=== PATIENT | male | born 1970 | race Caucasian/White ===

== ENCOUNTER 2018-02-03 08:00 | Emergency (ER) | payer BC ==
[2018-02-03 08:15] VITALS: BP 147/86
--- NOTE | 2018-02-03 08:30 | UC ---
Lower Extremity/Ankle HPI - HPI Summary HPI Summary: pain right great toe x 1 day very painful, swollen, red hx of gout also c/o dizziness x 2 days , worse with head movements no fever, no chills, no sinus pain , no cold sx, no chest pain - History of Current Complaint Chief Complaint: UCGeneralIllness Stated Complaint: RIGHT FOOT COMP,DIZZINESS Time Seen by Provider: 02/03/18 08:16 Hx Obtained From: Patient Onset/Duration: Gradual Onset, Lasting Days - 2, Still Present Severity Initially: Moderate Severity Currently: Severe Pain Intensity: 6 Aggravating Factor(s): Standing, Ambulation Able to Bear Weight: Yes - Allergies/Home Medications Allergies/Adverse Reactions: Allergies Allergy/AdvReac Type Severity Reaction Status Date / Time No Known Allergies Allergy Verified 02/03/18 08:12 Home Medications: Home Medications Losartan TAB* [Cozaar TAB*] 100 mg PO DAILY 02/03/18 [History Confirmed 02/03/18 ] PMH/Surg Hx/FS Hx/Imm Hx Cardiovascular History: Hypertension Other History Of: Negative For: HIV, Hepatitis B, Hepatitis C - Surgical History Surgical History: Yes Surgery Procedure, Year, and Place: Right lower leg vascular surgery RE-ROUTED NO IMPLANT"valve in vein" 10/31/12. Deviated Septum Repair, 1984 - Family History Known Family History: Positive: None, Cardiac Disease Negative: Diabetes - Social History Alcohol Use: Occasionally Substance Use Type: None Smoking Status (MU): Former Smoker Type: Cigarettes Amount Used/How Often: ~1 1/2 PPD Length of Time of Smoking/Using Tobacco: 26 Years Have You Smoked in the Last Year: No When Did the Patient Quit Smoking/Using Tobacco: 2007 - Immunization History Most Recent Influenza Vaccination: August 2016 Review of Systems Constitutional: Negative Skin: Negative Eyes: Negative ENT: Negative Respiratory: Negative Neurological: Other Psychological: Negative Is Patient Immunocompromised?: No All Other Systems Reviewed And Are Negative: Yes Physical Exam Triage Information Reviewed: Yes Appearance: Well-Appearing, Well-Nourished, Pain Distress Vital Signs: Initial Vital Signs Temp 98 F 02/03/18 08:09 Pulse 63 02/03/18 08:09 Resp 18 02/03/18 08:09 BP 147/86 02/03/18 08:09 Pulse Ox 99 02/03/18 08:09 Vital Signs Reviewed: Yes Eye Exam: Normal Eyes: Positive: Conjunctiva Clear ENT: Positive: Normal ENT inspection, Hearing grossly normal, Pharynx normal Neck exam: Normal Neck: Positive: Supple, Nontender, No Lymphadenopathy Respiratory: Positive: Chest non-tender, Lungs clear, Normal breath sounds Cardiovascular: Positive: RRR, No Murmur, Pulses Normal Abdominal Exam: Normal Abdomen Description: Positive: Nontender, No Organomegaly, Soft Bowel Sounds: Positive: Present Musculoskeletal Exam: Normal Musculoskeletal: Positive: Strength Intact, ROM Intact, No Edema Neurological: Positive: Alert Skin Exam: Normal UC Physical Exam Vital Signs On Initial Exam: Initial Vitals Temp Pulse Resp BP Pulse Ox 98 F 63 18 147/86 99 02/03/18 08:09 02/03/18 08:09 02/03/18 08:09 02/03/18 08:09 02/03/18 08:09 - Neurological Exam Neurological: Normal, Sensory/Motor Intact, Alert, Oriented to Person Place, Time, CN Intact II-III, Normal Gait, Speech Normal Lower Extremity Course/Dx - Differential Dx/Diagnosis Provider Diagnoses: vertigo. gout Discharge - Discharge Plan Condition: Stable Disposition: HOME Prescriptions: Indomethacin CAP* [Indocin CAP*] 50 mg PO TID #15 cap Meclizine TAB* [Antivert 12.5 TAB*] 25 mg PO TID PRN #21 tab PRN Reason: Dizziness Patient Education Materials: Gout (ED), Vertigo (ED) Referrals: No Primary Care Phys,NOPCP [Primary Care Provider] - 5 Days
== END 2018-02-03 08:30 | disposition home or self-care (01) ==
LOC: UCCORT 08:00
DX: M10.9 Gout, unspecified (principal); R42 Dizziness and giddiness; Z87.891 Personal history of nicotine dependence
CPT/HCPCS: 99212; G0463

== ENCOUNTER 2018-08-07 09:29 | Emergency (ER) | payer BC ==
[2018-08-07 10:17] VITALS: BP 163/95
--- NOTE | 2018-08-07 10:28 | UC ---
Hand/Wrist HPI - HPI Summary HPI Summary: 47 yo male presents with left thumb pain over the last 3-4 weeks. 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 No pain with ROM. Has not taken anything for the discomfort. Denies injury, numbness, or tingling. - History Of Current Complaint Chief Complaint: UCUpperExtremity Stated Complaint: LEFT HAND COMPLAINT Time Seen by Provider: 08/07/18 10:28 Hx Obtained From: Patient Onset/Duration: Gradual Onset Severity Initially: Mild Severity Currently: Mild Pain Intensity: 2 Pain Scale Used: 0-10 Numeric - Allergies/Home Medications Allergies/Adverse Reactions: Allergies Allergy/AdvReac Type Severity Reaction Status Date / Time No Known Allergies Allergy Verified 08/07/18 10:12 Home Medications: Home Medications Indomethacin CAP* [Indocin CAP*] 50 mg PO TID PRN 08/07/18 [History Confirmed ] PMH/Surg Hx/FS Hx/Imm Hx Endocrine History: Dyslipidemia Cardiovascular History: Hypertension Other History Of: Negative For: HIV, Hepatitis B, Hepatitis C - Surgical History Surgical History: Yes Surgery Procedure, Year, and Place: Right lower leg vascular surgery RE-ROUTED NO IMPLANT"valve in vein" 10/31/12. Deviated Septum Repair, 1984 - Family History Known Family History: Positive: None, Cardiac Disease Negative: Diabetes - Social History Occupation: Employed Full-time Lives: With Family Alcohol Use: Occasionally Substance Use Type: None Smoking Status (MU): Former Smoker Type: Cigarettes Amount Used/How Often: ~1 1/2 PPD Length of Time of Smoking/Using Tobacco: 26 Years Have You Smoked in the Last Year: No When Did the Patient Quit Smoking/Using Tobacco: 2007 - Immunization History Most Recent Influenza Vaccination: August 2016 Review of Systems Constitutional: Negative Skin: Negative Respiratory: Negative Cardiovascular: Negative Neurovascular: Negative Musculoskeletal: Other: - Left thumb pain Neurological: Negative Psychological: Negative All Other Systems Reviewed And Are Negative: Yes Physical Exam - Summary Physical Exam Summary: GENERAL: NAD. WDWN. No pain distress. SKIN: No rashes, sores, lesions, or open wounds. CHEST: No accessory muscle use. Breathing comfortably and in no distress. CV: Pulses intact radial and ulnar. Cap refill <2seconds MSK: LEFT THUMB: Mild TTP at CMC joint. Pain increased with gripping. FROM without pain. 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 No edema or obvious bony deformities. No snuffbox tenderness. NEURO: Alert. Sensations intact hand and all fingers. PSYCH: Age appropriate behavior. Triage Information Reviewed: Yes Vital Signs: Initial Vital Signs Temp 98 F 08/07/18 10:13 Pulse 61 08/07/18 10:13 Resp 18 08/07/18 10:13 BP 163/95 08/07/18 10:13 Pulse Ox 99 08/07/18 10:13 Vital Signs Reviewed: Yes Hand/Wrist Course/Dx - Course Course Of Treatment: Suspect tendinitis vs CMC arthritis. Will hold off on XR today as pt has had no injury. I discussed physical therapy with the pt, but he preferred to see Orthopedics. I believe a corticosteroid injection into the CMC joint would significantly improve his discomfort along with OT/PT and NSAIDs. He was provided with a thumb spica splint to use for comfort and reduction of pain. - Differential Dx/Diagnosis Provider Diagnoses: Left thumb pain Discharge - Sign-Out/Discharge Documenting (check all that apply): Patient Departure All imaging exams completed and their final reports reviewed: No Studies - Discharge Plan Condition: Stable Disposition: HOME Patient Education Materials: Skier's Thumb (ED), Osteoarthritis (DC) Referrals: No Primary Care Phys,NOPCP [Primary Care Provider] - Jossue Baum MD [Medical Doctor] - As Soon As Possible Additional Instructions: If you develop a fever, shortness of breath, chest pain, new or worsening symptoms - please call your PCP or go to the ED. Your blood pressure was high at todays visit. Please see your primary provider within 4 weeks for recheck and re-evaluation. 1) Rest and Ice your hand to relieve pain 2) Use the thumb splint for added comfort and pain relief 3) Please call Orthopedics at the number below to schedule a follow up appointment as soon as possible - Billing Disposition and Condition Condition: STABLE Disposition: Home
--- OUTSIDE RECORDS SUMMARY | 2018-08-09 04:03 | XMS REPORT ---
:1970 External Reference #:[id number] Author Organization [facility] Address [address] [place] [address] [place] [address] Phone [phone] Care Team Providers Name Role Phone Patient's Choice Primary Care Physician Unavailable Payers Type Date Identification Numbers Payment Provider Subscriber Commercial Effective: Policy Number: ROGERS Urias Rosalina Baxter 2011 [id number] Expires: 2016 PayID: [id number] [address] [address] DMITRY Fam [id number] Medigap Part B Effective: Policy Number: Jose Barrientos Ppdemetrius Perrybee 2016 [id number] Group Number: [id number] [address] [address] PayID: [id number] DMITRY Cedeño [id number] Problems Date Description Provider Status Onset: 10/04/2012 Epistaxis Brice Cleary M.D. Active Onset: 09/13/2012 Chronic rhinitis Brice Cleary M.D. Active Onset: 09/13/2012 Hypertrophy of nasal turbinates Brice Cleary M.D. 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 Cigarette Use Quit 4 Years Ago Cigars Never Smoked Cigars Pipe Never Smoked A Pipe Smokeless Tobacco Never Used Smokeless Tobacco ETOH Use Drinks 3 Alcoholic Beverages Per Day Smoking Patient is a former smoker Allergies, Adverse Reactions, Alerts Date Description Reaction Status Severity Comments 09/13/2012 NKDA active Medications Medication Date Status Form Strength Qnty SIG Indications Ordering Provider Atenolol / Active Tablets 25mg 1 po qday Sourav, 0000 MD Abelardo Losartan / Active Tablets 100mg 1 by Unknown Potassium 0000 mouth every day Ibuprofen 200 / Active Tablets 200mg 400-600mg Unknown 0000 every 6 hours as needed for pain. Tramadol HCL 01/27/ Hx Tablets 50mg 60tabs 1 tablet Zaneb 2016 - by mouth MD Natalie 08/06/ every 12 2018 hours as needed pain Diclofenac 12/20/ Hx Tablets DR 75mg 60tabs Take 1 by S83.232A Zaneb Sodium 2016 - mouth MD Natalie 08/06/ twice a 2017 day as needed for pain Veramyst 10/04/ Hx Suspension 27.5mcg/Sp 1units 2 sprays 472.0 Brice 2011 - ray in each [facility] 11/19/ Veronica willams 2016 qday Fluticasone 09/13/ Hx Suspension 50mcg/Act 1units 2 sprays 472.0 Brice Propionate 2011 - in each [facility] 10/04/ Veronica willams 2011 bid for 2 weeks and then qday Azelastine HCL 09/13/ Hx Solution 137mcg/Spr 1units 2 sprays 472.0 Brice 2011 - ay in each [facility] 10/04/ Veronica willams 2011 bid Zegerid OTC / Hx Capsules 20-1100mg 1 capsule Rahner, 0000 - in am Abdoul, 2017 Medications Administered in Office Medication Date Status Form Strength Qnty SIG Indications Ordering Provider Celestone 3 mg 08/07/ Administered Injection Jonathan M and 3mg 2017 MD Radha Triamcinolone 01/13/ Administered Injection Zaneb (Kenalog) 2016 MD Natalie Vital Signs Date Vital Result Comment 08/07/2018 Height 75 inches 6'3" Weight 250.00 lb BP Systolic Sitting 126 mmHg BP Diastolic Sitting 78 mmHg Respiratory Rate 16 /min Pain Level 2 achy, occassional stabbing pain BMI (Body Mass Index) 31.2 kg/m2 01/13/2017 Height 75 inches 6'3" Weight 255.00 lb Heart Rate 70 /min BP Systolic 152 mmHg BP Diastolic 103 mmHg Pain Level 3 BMI (Body Mass Index) 31.9 kg/m2 09/13/2012 Weight 175.00 lb Heart Rate 80 /min BP Systolic Sitting 128 mmHg BP Diastolic Sitting 86 mmHg Results Description No Information Procedures Date CPT Code Description Status 08/07/201820417 Inject/Drain Joint/Bursa Intermediate W/O US Completed 01/13/2017 Inject/Drain Joint/Bursa Major W/O US Completed 10/04/2012 70487 Endoscopic Nasal Cautery Completed Encounters Type Date Location Provider CPT E/M Dx Office Visit 01/13/2017 8:15a [facility] [place] [address] M25.562 C[facility] S83.232D S83.282D Office Visit 12/20/2016 2:30p [facility] [place] [address] M25.562 C.[facility] S83.232A S83.282A Office Visit 10/04/2012 2:15p [facility], [address] 784.7 [facility] AT [facility] 478.19 478.0 472.0 Office Visit 09/13/2012 9:45a [facility], [address] 478.19 [facility] 478.0 472.0 Plan of Care 08/07/2018 - Jonathan Garcia, MDM18.12 Unil primary osteoarth of first carpometacarp joint, l handComments:use braceFollow up:Follow up: As needed
== END 2018-08-07 10:43 | disposition home or self-care (01) ==
LOC: UCCORT 09:29
DX: M79.645 Pain in left finger(s) (principal); I10 Essential (primary) hypertension; Z87.891 Personal history of nicotine dependence
CPT/HCPCS: 99212; G0463

== ENCOUNTER 2019-12-31 16:16 | Emergency (ER) | payer BC ==
[2019-12-31 16:37] VITALS: BP 153/88
--- NOTE | 2019-12-31 16:57 | UC ---
Lower Extremity/Ankle HPI - HPI Summary HPI Summary: 49 yo male presents with LEFT foot pain. He tells me this morning he was wearing his usual sneakers and walking to his car. In the process of this he heard and felt a pop to his left foot at the base of his 5th MT with severe pain. He continued to work on this throughout today and was very painful. Nothing OTC for symptoms. Denies numbness or tingling. - History of Current Complaint Chief Complaint: UCLowerExtremity Stated Complaint: LEFT FOOT COMPLAINT Time Seen by Provider: 12/31/19 16:56 Hx Obtained From: Patient Onset/Duration: Sudden Onset Severity Initially: Severe Severity Currently: Severe Pain Intensity: 8 Pain Scale Used: 0-10 Numeric - Allergies/Home Medications Allergies/Adverse Reactions: Allergies Allergy/AdvReac Type Severity Reaction Status Date / Time No Known Allergies Allergy Verified 12/31/19 16:34 PMH/Surg Hx/FS Hx/Imm Hx Cardiovascular History: Hypertension Other History Of: Negative For: HIV, Hepatitis B, Hepatitis C - Surgical History Surgical History: Yes Surgery Procedure, Year, and Place: Right lower leg vascular surgery RE-ROUTED NO IMPLANT"valve in vein" 10/31/12. Deviated Septum Repair, 1984 - Family History Known Family History: Positive: Cardiac Disease Negative: Diabetes - Social History Occupation: Employed Full-time Lives: With Family Alcohol Use: Weekly Alcohol Amount: every other day Substance Use Type: None Smoking Status (MU): Former Smoker Type: Cigarettes Amount Used/How Often: ~1 1/2 PPD Length of Time of Smoking/Using Tobacco: 26 Years Have You Smoked in the Last Year: No When Did the Patient Quit Smoking/Using Tobacco: 2007 - Immunization History Most Recent Influenza Vaccination: August 2016 Review of Systems All Other Systems Reviewed And Are Negative: No Constitutional: Positive: Negative Skin: Positive: Negative Respiratory: Positive: Negative Cardiovascular: Positive: Negative Neurovascular: Positive: Negative Musculoskeletal: Positive: Other: - Left foot pain Neurological/Mental Status: Positive: Negative Psychological: Positive: Negative Physical Exam - Summary Physical Exam Summary: GENERAL: NAD. WDWN. No pain distress. SKIN: No rashes, sores, lesions, or open wounds. CHEST: No accessory muscle use. Breathing comfortably and in no distress. CV: Pulses intact PT and DP. Cap refill <2seconds MSK: LEFT FOOT: Moderate TTP at base of 5th MT. FROM with mild edema. Strength 5 /5. NEURO: Alert. Sensations intact and symmetric B/L LEs PSYCH: Age appropriate behavior. Triage Information Reviewed: Yes Vital Signs: Initial Vital Signs Temp 99.1 F 12/31/19 16:31 Pulse 80 12/31/19 16:31 Resp 16 12/31/19 16:31 BP 153/88 12/31/19 16:31 Pulse Ox 99 12/31/19 16:31 Vital Signs Reviewed: Yes Procedures - Splinting Left Lower Extremity Hand-Made Type: orthoglass Splint: posterior walking Pre-Proc Neuro Vasc Exam: normal Post-Proc Neuro Vasc Exam: normal Splint Applied by Provider: [facility] - Radiology Foot and ankle XR Radiology Interpretation Completed By: Radiologist Summary of Radiographic Findings: IMPRESSION: TRANSVERSE NONDISPLACED FRACTURE OF THE PROXIMAL FIFTH METATARSAL. Lower Extremity Course/Dx - Course Course Of Treatment: XR as above. Root fracture. Pt placed in posterior splint and provided with crutches. Advised to be non- weight bearing and f/u with Orthopedics. - Differential Dx/Diagnosis Provider Diagnosis: Fracture of base of fifth metatarsal bone Discharge ED - Sign-Out/Discharge Documenting (check all that apply): Patient Departure All imaging exams completed and their final reports reviewed: Yes - Discharge Plan Condition: Stable Disposition: HOME Patient Education Materials: Foot Fracture in Adults (ED) Referrals: Lori Jimenez PA [Primary Care Provider] - Elvis Chadwick MD [Medical Doctor] - As Soon As Possible Additional Instructions: If you develop a fever, shortness of breath, chest pain, new or worsening symptoms - please call your PCP or go to the ED immediately. Your blood pressure was high at todays visit. Please see your primary provider within 4 weeks for recheck and re-evaluation. 1) It is important to use the crutches to be non-weight bearing 2) Keep the splint clean, dry, and intact 3) Please call Orthopedics at the number below to schedule an appointment within 7 days for a recheck - Billing Disposition and Condition Condition: STABLE Disposition: Home
== END 2019-12-31 17:45 | disposition home or self-care (01) ==
LOC: UCCORT 16:16
DX: S92.355A Nondisplaced fracture of fifth metatarsal bone, left foot, initial encounter for closed fracture (principal); X58.XXXA Exposure to other specified factors, initial encounter; Y93.01 Activity, walking, marching and hiking; Y92.9 Unspecified place or not applicable; I10 Essential (primary) hypertension; Z87.891 Personal history of nicotine dependence
CPT/HCPCS: 28470; 99212; G0463